=== PATIENT | female | born 1935 | race Caucasian/White ===

== ENCOUNTER 2018-01-11 18:31 | Inpatient (IN) ==
[2018-01-11] MEDS ORDERED: 0.9 % Sodium Chloride 1,000 ML IVC ONE (18:35)
--- NOTE | 2018-01-11 18:40 | Emergency Department Note ---
Disposition Clinical Impression: UTI (urinary tract infection), Dehydration Disposition: Admitted As Inpatient Condition: Serious Referrals: NONE,PCP [Primary Care Provider] - Forms: ED Satisfaction Letter, Work/School Release Time of Disposition: 19:32 ( will admit) Altered Mental Status HPI - General Chief Complaint: ED General Medical Stated Complaint: multiple complaints form ecf Source: EMS Mode of arrival: EMS Limitations: altered mental status Nursing Notes Reviewed: Yes Vital Signs Reviewed: Yes - History of Present Illness HPI Narrative: This 82-year-old female who presented to the emergency department via EMS from local assisted for evaluation of elevated blood pressure , and possible aspiration pneumonia. Patient has had decreased oral intake in the assisted per nurse. Patient is a DNR status. Patient herself is unable to give any kind of a history, most of the history is obtained from her assisted records and from the nurse at the assisted. MD complaint: altered mental status, confusion, decreased responsiveness Onset (ago): day(s) (one) Pain Severity: none Consistency of Symptoms: waxing and waning - Related Data Home Medications Medication Instructions Recorded Confirmed Divalproex Sodium [Depakote 125 mg PO BID 01/13/15 03/04/15 Sprinkle] HydrALAZINE 10 mg PO Q6HR 01/13/15 03/04/15 Metoprolol [Lopressor] 25 mg PO BID 01/13/15 03/04/15 Quetiapine Fumarate [SEROquel] 25 mg PO HS 01/13/15 03/04/15 Rivaroxaban [Xarelto] 20 mg PO QAM 01/13/15 03/04/15 Ergocalciferol (VITAMIN D2) 8,000 unit PO 03/04/15 03/04/15 [Drisdol] Multivit-Minerals/Folic Acid 200 mcg PO QAM 03/04/15 03/04/15 [Adult Multi Gummies] Previous Rx's Medication Instructions Recorded levoFLOXacin [Levaquin] 500 mg PO DAILY #7 tablet 05/18/16 Allergies Allergy/AdvReac Type Severity Reaction Status Date / Time No Known Allergies Allergy Verified 05/18/16 20:33 Limitations: ROS unobtainable due to patients medical condition (Patient is confused and cannot speak) Past Medical History - Past Medical History Medical history: Reports: arthritis, dementia, hypertension, pulmonary embolus, other Surgical history: Reports: no surgical history Psychiatric history: Reports: anxiety [employer] BU[employer]ER history: Reports: no [employer] BU[employer]ER history - Social History Smoking Status: Never smoker Smokeless Tobacco Status: No Alcohol use: Reports: none Drug use: Reports: none Physical Exam - General Limitations: altered mental status General appearance: in no apparent distress - Head Head exam: atraumatic, normocephalic, normal inspection - Eye Eye exam: Present: normal appearance, PERRL, EOMI - Expanded Eye Exam Pupils: Left: reactive - ENT ENT exam: normal exam, normal oropharynx, mucous membranes moist - Expanded ENT Exam External ear exam: Present: normal external inspection Mouth exam: Present: normal external inspection Teeth exam: Present: normal inspection Throat exam: Present: normal inspection - Neck Neck exam: Present: normal inspection, full ROM, trachea midline - Chest Chest inspection: Present: normal inspection, symmetric chest wall rise - Respiratory Respiratory exam: Present: normal lung sounds bilaterally - Cardiovascular Cardiovascular exam: Present: tachycardia - Abdominal Exam Abdominal exam: Present: soft, Non-Tender. Absent: tenderness, distention, guarding, rebound, rigidity - Extremities Exam Extremities exam: Present: normal inspection, full ROM. Absent: tenderness, pedal edema - Expanded Upper Extremity Exam Shoulder exam: Present: normal inspection, full ROM Arm exam: Present: normal inspection, full ROM Elbow exam: Present: normal inspection, full ROM Forearm/Wrist exam: Present: normal inspection, full ROM Hand exam: Present: normal inspection, full ROM Vascular exam: Normal: capillary refill, radial pulse - Expanded Lower Extremity Exam Hip/Pelvis exam: Present: normal inspection, full ROM Upper leg exam: Present: normal inspection, full ROM Knee exam: Present: normal inspection, full ROM Lower leg exam: Present: normal inspection, full ROM Ankle exam: Present: normal inspection, full ROM Foot/toe exam: Present: normal inspection, full ROM Neurovascular/Tendon exam: Absent: motor deficit, sensory deficit, tendon deficit - Back Exam Back exam: Present: normal inspection, full ROM. Absent: tenderness - Neurological Exam Neurological exam: Present: other (Patient is confused, she is basically laying in bed and will not open her eyes) - Expanded Neurological Exam Coma Scale Eye Opening: To Voice Coma Scale Motor Response: Localizes to Pain Coma Scale Verbal Response: Confused Coma Scale Total: 12 - Psychiatric Psychiatric exam: Present: normal affect, normal mood - Skin Skin exam: Present: warm, dry, intact, normal color Course Vital Signs Temperature 100.2 F H 01/11/18 18:35 Pulse Rate 108 01/11/18 18:35 Respiratory Rate 32 01/11/18 18:35 Blood Pressure 136/85 01/11/18 18:35 O2 Sat by Pulse Oximetry 93 01/11/18 18:35 Temperature 100.2 F H 01/11/18 18:40 Pulse Rate 108 01/11/18 18:40 Respiratory Rate 32 01/11/18 18:40 Blood Pressure 136/85 01/11/18 18:40 O2 Sat by Pulse Oximetry 93 01/11/18 18:40 Oxygen Delivery Oxygen Delivery Nasal Cannula Altered Mental Status - MDM Narrative Medical decision making narrative: Labs are obtained including CBC chemistry. Dawson catheter was placed urine analysis urine culture blood culture 2 and lactic acid level was obtained. Patient was started on IV normal saline given 1000 mL of normal saline bolus, after blood cultures patient was given 2 g of Rocephin IV. Due to the fact that this patient is not eating and with the elevated white count and a urinary tract infection, patient will be admitted for fluids and IV antibiotics. She is a DNR - Differential Diagnosis Likely: altered mental status, hypoglycemia, sepsis - Lab Data Lab results reviewed: Yes I reviewed the patient's lab results. Result diagrams: 01/11/18 18:48 01/11/18 18:48 Lab Results 01/11/18 01/11/18 01/11/18 Range/Units 18:48 18:48 18:48 WBC 24.8 H (4.3-11.1) K/mcL RBC 4.45 (3.82-4.97) M/mcL Hgb 12.7 (11.5-15.4) g/dL Hct 39.5 (35.3-44.9) % MCV 88.8 (83.0-100.0) fL MCH 28.5 (28.0-33.3) pg MCHC 32.2 (31.6-35.5) g/dL RDW 16.8 H (11.5-14.5) % Plt Count 323 (140-400) K/mcL MPV 10.7 (9.4-12.4) fL Immature Gran % 1.0 (0-4) % Seg Neutrophils % 78.7 % Lymphocytes % 8.8 % Monocytes % 11.3 % Eosinophils % 0.0 % Basophils % 0.2 % Neutrophils # 19.5 H (1.6-8.9) K/mcL Lymphocytes # 2.2 (0.6-4.6) K/mcL Monocytes # 2.8 H (0.0-1.3) K/mcL Eosinophils # 0.0 (0.0-0.6) K/mcL Basophils # 0.1 (0.0-0.2) K/mcL PT 21.3 H (9.4-12.1) Seconds INR 1.9 APTT 28.7 (26.0-36.0) Seconds Sample Site ABG pH (7.32-7.45) pH Units ABG pCO2 (35-45) mmHg ABG pO2 (85-104) mmHg ABG HCO3 (21-27) mEq/L ABG Total CO2 (20-26) mEq/L ABG O2 Saturation (95-98) % ABG Base Excess (-2 to 3) mEq/L Oscar Test O2 Delivery Device Inspired O2 (1-15=lpm [id number]=%) Sodium 144 (136-145) mEq/L Potassium 4.3 (3.5-5.1) mEq/L Chloride 109 H (98-107) mEq/L Carbon Dioxide 25 (23-29) mEq/L BUN 28 H (8-23) mg/dL Creatinine 1.10 (0.60-1.20) mg/dL Est GFR ( Amer) 58 L (> 60) Est GFR (Non-Af Amer) 48 L (> 60) BUN/Creatinine Ratio 25 (6-26) Glucose 169 H (70-105) mg/dL Calculated Osmolality 307 H (280-300) Lactic Acid (0.5-2.2) mmol/L Calcium 9.5 (8.6-10.3) mg/dL Total Bilirubin 1.3 H (0.3-1.0) mg/dL Direct Bilirubin 0.1 (0.0-0.2) mg/dL Indirect Bilirubin 1.2 (0.0-1.2) mg/dL AST 22 (13-39) Units/L ALT 31 (7-52) Units/L Alkaline Phosphatase 84 (34-104) Units/L Ammonia (16-53) mcmol/L Troponin I < 0.03 (< 0.04) ng/mL Serum Total Protein 7.6 (6.4-8.9) g/dL Albumin 3.4 L (3.5-5.7) g/dL Globulin 4.2 H (2.4-3.5) g/dL Albumin/Globulin Ratio 0.8 L (1.1-2.2) TSH (0.340-5.600) mcIU/mL Ethyl Alcohol < 10 (Less than 10) mg/dL 01/11/18 01/11/18 01/11/18 Range/Units 18:48 18:48 18:48 WBC (4.3-11.1) K/mcL RBC (3.82-4.97) M/mcL Hgb (11.5-15.4) g/dL Hct (35.3-44.9) % MCV (83.0-100.0) fL MCH (28.0-33.3) pg MCHC (31.6-35.5) g/dL RDW (11.5-14.5) % Plt Count (140-400) K/mcL MPV (9.4-12.4) fL Immature Gran % (0-4) % Seg Neutrophils % % Lymphocytes % % Monocytes % % Eosinophils % % Basophils % % Neutrophils # (1.6-8.9) K/mcL Lymphocytes # (0.6-4.6) K/mcL Monocytes # (0.0-1.3) K/mcL Eosinophils # (0.0-0.6) K/mcL Basophils # (0.0-0.2) K/mcL PT (9.4-12.1) Seconds INR APTT (26.0-36.0) Seconds Sample Site ABG pH (7.32-7.45) pH Units ABG pCO2 (35-45) mmHg ABG pO2 (85-104) mmHg ABG HCO3 (21-27) mEq/L ABG Total CO2 (20-26) mEq/L ABG O2 Saturation (95-98) % ABG Base Excess (-2 to 3) mEq/L Oscar Test O2 Delivery Device Inspired O2 (1-15=lpm [id number]=%) Sodium (136-145) mEq/L Potassium (3.5-5.1) mEq/L Chloride (98-107) mEq/L Carbon Dioxide (23-29) mEq/L BUN (8-23) mg/dL Creatinine (0.60-1.20) mg/dL Est GFR ( Amer) (> 60) Est GFR (Non-Af Amer) (> 60) BUN/Creatinine Ratio (6-26) Glucose (70-105) mg/dL Calculated Osmolality (280-300) Lactic Acid 2.0 (0.5-2.2) mmol/L Calcium (8.6-10.3) mg/dL Total Bilirubin (0.3-1.0) mg/dL Direct Bilirubin (0.0-0.2) mg/dL Indirect Bilirubin (0.0-1.2) mg/dL AST (13-39) Units/L ALT (7-52) Units/L Alkaline Phosphatase (34-104) Units/L Ammonia 37 (16-53) mcmol/L Troponin I (< 0.04) ng/mL Serum Total Protein (6.4-8.9) g/dL Albumin (3.5-5.7) g/dL Globulin (2.4-3.5) g/dL Albumin/Globulin Ratio (1.1-2.2) TSH 4.011 (0.340-5.600) mcIU/mL Ethyl Alcohol (Less than 10) mg/dL 01/11/18 Range/Units 19:33 WBC (4.3-11.1) K/mcL RBC (3.82-4.97) M/mcL Hgb (11.5-15.4) g/dL Hct (35.3-44.9) % MCV (83.0-100.0) fL MCH (28.0-33.3) pg MCHC (31.6-35.5) g/dL RDW (11.5-14.5) % Plt Count (140-400) K/mcL MPV (9.4-12.4) fL Immature Gran % (0-4) % Seg Neutrophils % % Lymphocytes % % Monocytes % % Eosinophils % % Basophils % % Neutrophils # (1.6-8.9) K/mcL Lymphocytes # (0.6-4.6) K/mcL Monocytes # (0.0-1.3) K/mcL Eosinophils # (0.0-0.6) K/mcL Basophils # (0.0-0.2) K/mcL PT (9.4-12.1) Seconds INR APTT (26.0-36.0) Seconds Sample Site L Brach ABG pH 7.51 H (7.32-7.45) pH Units ABG pCO2 30 L (35-45) mmHg ABG pO2 82 L (85-104) mmHg ABG HCO3 23 (21-27) mEq/L ABG Total CO2 24 (20-26) mEq/L ABG O2 Saturation 97 (95-98) % ABG Base Excess 1 (-2 to 3) mEq/L Oscar Test N/A O2 Delivery Device Cannula Inspired O2 4.0 (1-15=lpm [id number]=%) Sodium (136-145) mEq/L Potassium (3.5-5.1) mEq/L Chloride (98-107) mEq/L Carbon Dioxide (23-29) mEq/L BUN (8-23) mg/dL Creatinine (0.60-1.20) mg/dL Est GFR ( Amer) (> 60) Est GFR (Non-Af Amer) (> 60) BUN/Creatinine Ratio (6-26) Glucose (70-105) mg/dL Calculated Osmolality (280-300) Lactic Acid (0.5-2.2) mmol/L Calcium (8.6-10.3) mg/dL Total Bilirubin (0.3-1.0) mg/dL Direct Bilirubin (0.0-0.2) mg/dL Indirect Bilirubin (0.0-1.2) mg/dL AST (13-39) Units/L ALT (7-52) Units/L Alkaline Phosphatase (34-104) Units/L Ammonia (16-53) mcmol/L Troponin I (< 0.04) ng/mL Serum Total Protein (6.4-8.9) g/dL Albumin (3.5-5.7) g/dL Globulin (2.4-3.5) g/dL Albumin/Globulin Ratio (1.1-2.2) TSH (0.340-5.600) mcIU/mL Ethyl Alcohol (Less than 10) mg/dL - Radiology Data Radiology results reviewed: Yes I reviewed the patient's radiology results. TPA Checklist - LKW: 3-4.5 hrs Add. Warnings/Precautions Patient/family understanding: The patient/family members have been counseled and understood the risk, benefit, and alternatives of treatment.
[2018-01-11] MEDS ORDERED: Acetaminophen 650 MG RECTAL SUPP RC ONE (18:44)
[2018-01-11 18:59] LABS: Basophils # 0.1 K/mcL (0.0-0.2); Basophils % 0.2 %; Hematocrit 39.5 % (35.3-44.9); Hemoglobin 12.7 g/dL (11.5-15.4); Lymphocytes # 2.2 K/mcL (0.6-4.6); Lymphocytes % 8.8 %; Mean Corpuscular HGB Conc 32.2 g/dL (31.6-35.5); Mean Corpuscular Hemoglobin 28.5 pg (28.0-33.3); Mean Corpuscular Volume 88.8 fL (83.0-100.0); Mean Platelet Volume 10.7 fL (9.4-12.4); Monocytes # 2.8 K/mcL (0.0-1.3); Monocytes % 11.3 %; Neutrophils # 19.5 K/mcL (1.6-8.9); Platelet Count 323 K/mcL (140-400); Red Blood Count 4.45 M/mcL (3.82-4.97); Red Cell Distribution Width 16.8 % (11.5-14.5); Segmented Neutrophils % 78.7 %
[2018-01-11 19:07] LABS: INR 1.9; Prothrombin Time 21.3 Seconds (9.4-12.1)
[2018-01-11 19:10] LABS: Activated Partial Thrombo Time 28.7 Seconds (26.0-36.0)
[2018-01-11 19:13] LABS: Alanine Aminotransferase 31 Units/L (7-52); Albumin 3.4 g/dL (3.5-5.7); Albumin/Globulin Ratio 0.8 (1.1-2.2); Alkaline Phosphatase 84 Units/L (34-104); Aspartate Amino Transferase 22 Units/L (13-39); BUN/Creatinine Ratio 25 (6-26); Bilirubin,Direct 0.1 mg/dL (0.0-0.2); Bilirubin,Indirect 1.2 mg/dL (0.0-1.2); Bilirubin,Total 1.3 mg/dL (0.3-1.0); Blood Urea Nitrogen 28 mg/dL (8-23); Calcium 9.5 mg/dL (8.6-10.3); Carbon Dioxide 25 mEq/L (23-29); Chloride 109 mEq/L (98-107); Ethanol < 10 mg/dL (Less than 10); Globulin 4.2 g/dL (2.4-3.5); Glucose 169 mg/dL (70-105); Osmolality,Calculated 307 (280-300); Potassium 4.3 mEq/L (3.5-5.1); Sodium 144 mEq/L (136-145); Total Protein 7.6 g/dL (6.4-8.9); eGFR For Non-African Americans 48 (> 60)
[2018-01-11 19:16] LABS: Troponin I < 0.03 ng/mL (< 0.04)
[2018-01-11] MEDS ORDERED: Naloxone 0.4 MG/ML INJ IVP PRN (19:34)
[2018-01-11 19:36] LABS: ABG Base Excess 1 mEq/L (-2 to 3); ABG HCO3 23 mEq/L (21-27); ABG Oxygen Saturation 97 % (95-98); ABG PCO2 30 mmHg (35-45); ABG PH 7.51 pH Units (7.32-7.45); ABG PO2 82 mmHg (85-104); ABG TCO2 24 mEq/L (20-26)
[2018-01-11] MEDS: cefTRIAXone 2,000 MG in Water for inj. (sterile) 20 ML 20 ML IVP SCH (20:18)
[2018-01-11 20:59] LABS: Bilirubin,Urine Small (Negative); Blood,Urine Moderate (Negative); Clarity,Urine Cloudy (Clear); Glucose,Urine (UA) Normal (Normal); Ketones,Urine Negative (Negative); Leukocyte Esterase,Urine Trace (Negative); Nitrite,Urine Positive (Negative); Protein,Urine >=300 mg/dL (Neg-Trace); Specific Gravity,Urine 1.025 (1.010-1.025); Urobilinogen,Urine Normal (Normal)
[2018-01-11 21:02] LABS: Color,Urine Dark Yellow (Yellow)
[2018-01-11 21:09] LABS: Hyaline Casts,Urine Few per lpf (None-Few); Mucus,Urine Moderate (Few); Squamous Epithelial Cell,Urine Few per lpf (None-Few)
[2018-01-11 21:10] LABS: RBC,Urine 30-50 per hpf (0-3)
[2018-01-11 21:11] LABS: Bacteria,Urine Many per hpf (None-Few)
[2018-01-11 21:31] LABS: Amphetamine Screen,Urine Negative ng/mL (Cutoff=1000); Barbiturate Screen,Urine Negative ng/mL (Cutoff=200); Benzodiazepines Screen,Urine Negative ng/mL (Cutoff=200); Cannabinoid Screen,Urine Negative ng/mL (Cutoff = 50); Cocaine Screen,Urine Negative ng/mL (Cutoff= 300); Opiate Screen,Urine Negative ng/mL (Cutoff=300); Phencyclidine Screen,Urine Negative ng/mL (Cutoff=25)
--- NOTE | 2018-01-12 11:55 | Internal Med History&Physical ---
Date of Encounter: 01/12/18 Time of Encounter: 11:20 Assessment and Plan (1) UTI (urinary tract infection) Current visit: Yes Status: Acute She has been started on IV Rocephin. Add lactobacillus and monitor. Qualifiers: Urinary tract infection type: site unspecified Hematuria presence: with hematuria Qualified Code(s): N39.0 - Urinary tract infection, site not specifi ed; R31.9 - Hematuria, unspecified (2) Dehydration Current visit: Yes Status: Acute IV fluids have been ordered. Recheck labs in a.m. (3) Dementia Current visit: Yes Status: Acute Continue to monitor. Qualifiers: Dementia type: unspecified type Dementia behavioral disturbance: without behavioral disturbance Qualified Code(s): F03.90 - Unspecified dementia without behavioral disturbance Internal Medicine - H&P: HPI Chief complaint: Hypertension, tachycardia Admitted From: Emergency Dept Plans for Post Hospital Care: Transfer Custodial Care History of present illness: Ms. Taylor is a 82 year old female who was sent to emergency room after staff at [facility] reported her to have tachycardia and hypertension. She was evaluated and emergency room and was found to have leukocytosis with left shift, azotemia, and tachycardia. She was admitted to [facility] floor for ongoing care needs. She has advanced dementia and is nonverbal. Past Med Surg Social Fam HX - Past Medical History Medical history: arthritis, dementia, hypertension, pulmonary embolus, other Additional medical history: VITAMIN D DEFICIENCY. Psychiatric history: anxiety - Past Surgical History Surgical History: no surgical history Additional surgical history: unknown - Social History Smoking Status: Never smoker Smokeless Tobacco Status: No Alcohol use: none Drug use: none Internal Medicine - H&P: Meds Amlodipine Besylate 5 mg PO HS 01/12/18 [History] Metoprolol [Lopressor] 25 mg PO BID 01/12/18 [History] Mirtazapine 15 mg PO DAILY 01/12/18 [History] Ondansetron ODT [Zofran ODT] 4 mg SL PRN PRN 01/12/18 [History] Tramadol HCl [Ultram] 100 mg PO DAILY 01/12/18 [History] Vitamin D 1,000 units PO DAILY 01/12/18 [History] Xarelto 20 mg PO DAILY 01/12/18 [History] Allergy/AdvReac Type Severity Reaction Status Date / Time No Known Allergies Allergy Verified 05/18/16 20:33 All Systems PM: A 10-system review of systems was performed and is negative for pertinent findi ngs except as documented above in the HPI. Review of systems: Review of systems is obtained from available records. Gen.: Her weight has increased from 123 pounds June 2012 to approximately 145 pounds at present Cardiovascular: She has no known hypertension MS heart failure or angina. 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 She has no known hematuria dysuria or kidney stones Neurologic: No history of large distribution strokes or seizures. She has advanced dementia. Endocrine: She has history of vitamin D deficiency. There is no known diabetes thyroid disease or hyperlipidemia Hematology/oncology: No history of blood disorders cancers or anemia Psychiatric: She has history of anxiety and depression the past. [place] skeletal: She has DJD but no known gout or other bone joint or muscle disorders. - Constitutional Vitals: Temp Pulse Resp BP Pulse Ox 100.3 F H 77 14 108/50 96 01/12/18 07:08 01/12/18 07:08 01/12/18 07:08 01/12/18 07:08 01/12/18 07:08 Exam: Gen.: She is a well-developed well-nourished female lying comfortably in bed who appears in no acute distress at present time HEENT: Head is atraumatic and normocephalic. Eyes: She does not open her eyes for examination. Mouth: Mucosa is dry but she is mouth breathing. Neck: She appears to have enlarged thyroid gland without palpable nodules. There is no adenopathy. There is a nonspecific fullness to the neck. Heart: Regular with occasional ectopic beat. Rate is approximately 100/m. Lungs: No wheezes or crackles are heard. Abdomen: Soft and nontender. Bowel sounds are diminished. No masses or guarding are noted. Extremities: She has significant DJD changes of her hands. There is no edema of her lower legs. Neurologic: Mental status: She does not respond meaningfully to voice or light touch. Cranial nerves: She does not move her facial muscle spontaneously. She does not open her eyes or allow her eyelids to be raised. Motor: She has stiffness on passive range of motion of her joints. No further neurologic testing is attempted. Skin: Warm and dry Internal Med - H&P Results - Labs CBC & Chem 7: 01/11/18 18:48 01/11/18 18:48 Labs: Short CBC 01/11/18 Range/Units 18:48 WBC 24.8 H (4.3-11.1) K/mcL Hgb 12.7 (11.5-15.4) g/dL Hct 39.5 (35.3-44.9) % Plt Count 323 (140-400) K/mcL Neutrophils # 19.5 H (1.6-8.9) K/mcL BMP 01/11/18 18:48 Sodium 144 Potassium 4.3 Chloride 109 H Carbon Dioxide 25 BUN 28 H Creatinine 1.10 Glucose 169 H Calcium 9.5 Cardiac Enzymes 01/11/18 Range/Units 18:48 Troponin I < 0.03 (< 0.04) ng/mL Liver Function 01/11/18 Range/Units 18:48 Total Bilirubin 1.3 H (0.3-1.0) mg/dL Direct Bilirubin 0.1 (0.0-0.2) mg/dL AST 22 (13-39) Units/L ALT 31 (7-52) Units/L Alkaline Phosphatase 84 (34-104) Units/L Albumin 3.4 L (3.5-5.7) g/dL Urine 01/11/18 Range/Units 20:58 Urine Color Dark Yellow (Yellow) Urine Clarity Cloudy A (Clear) Urine pH 7.0 (5.0-8.0) pH Units Ur Specific [place] 1.025 (1.010-1.025) Urine Protein >=300 H (Neg-Trace) mg/dL Urine Glucose (UA) Normal (Normal) mg/dL - ABG Interpretation ABG results: 01/11/18 19:33 ABG pH 7.51 H ABG pCO2 30 L ABG pO2 82 L ABG HCO3 23 ABG Total CO2 24 ABG O2 Saturation 97 ABG Base Excess 1 - Impressions ITS Impressions Chest X-Ray 01/11/18 18:35 IMPRESSION: 1. No radiographic evidence of acute cardiopulmonary process. 2. Hypoventilatory changes with bibasilar atelectasis. D/ / Ethan Ramírez MD / Ethan Ramírez MD Interpreting Provider: Ethan Ramírez MD
[2018-01-12] MEDS: cefTRIAXone 2,000 MG in Water for inj. (sterile) 20 ML 20 ML IVP SCH (17:57)
[2018-01-12] MEDS: Lactobacillus 1 EACH CAP.SPRINK PO SCH (20:49)
[2018-01-13 06:18] LABS: Basophils % 0.3 %; Eosinophils # 0.1 K/mcL (0.0-0.6); Eosinophils % 0.9 %; Hematocrit 34.3 % (35.3-44.9); Hemoglobin 10.6 g/dL (11.5-15.4); Immature Granulocytes % 0.6 % (0-4); Lymphocytes # 1.8 K/mcL (0.6-4.6); Mean Corpuscular HGB Conc 30.9 g/dL (31.6-35.5); Mean Corpuscular Hemoglobin 28.8 pg (28.0-33.3); Mean Corpuscular Volume 93.2 fL (83.0-100.0); Mean Platelet Volume 11.1 fL (9.4-12.4); Monocytes # 1.1 K/mcL (0.0-1.3); Monocytes % 8.3 %; Neutrophils # 9.6 K/mcL (1.6-8.9); Platelet Count 234 K/mcL (140-400); Red Blood Count 3.68 M/mcL (3.82-4.97); Red Cell Distribution Width 16.2 % (11.5-14.5); Segmented Neutrophils % 75.9 %
[2018-01-13 06:41] LABS: Alanine Aminotransferase 50 Units/L (7-52); Albumin 2.8 g/dL (3.5-5.7); Albumin/Globulin Ratio 0.7 (1.1-2.2); Alkaline Phosphatase 95 Units/L (34-104); Aspartate Amino Transferase 35 Units/L (13-39); BUN/Creatinine Ratio 29 (6-26); Bilirubin,Total 1.4 mg/dL (0.3-1.0); Blood Urea Nitrogen 19 mg/dL (8-23); Calcium 8.6 mg/dL (8.6-10.3); Carbon Dioxide 23 mEq/L (23-29); Chloride 111 mEq/L (98-107); Globulin 3.8 g/dL (2.4-3.5); Glucose 88 mg/dL (70-105); Osmolality,Calculated 298 (280-300); Potassium 3.4 mEq/L (3.5-5.1); Sodium 143 mEq/L (136-145); Total Protein 6.6 g/dL (6.4-8.9); eGFR For Non-African Americans > 60 (> 60)
--- NOTE | 2018-01-13 10:21 | Internal Med Progress Note ---
Date of Encounter: 01/13/18 Time of Encounter: 10:17 - Assessment and plan (1) UTI (urinary tract infection) Current Visit: Yes Status: Acute Assessment and plan: January 13. Preliminary urine culture shows gram-negative rods. Continue empiric Rocephin with lactobacillus Qualifiers: Urinary tract infection type: site unspecified Hematuria presence: with hematuria Qualified Code(s): N39.0 - Urinary tract infection, site not specified; R31.9 - Hematuria, unspecified (2) Dehydration Current Visit: Yes Status: Acute Assessment and plan: January 13. Resolved with BUN and creatinine now 19 and 0.66 respectively. Decrease IV fluid rate. (3) Dementia Current Visit: Yes Status: Acute Assessment and plan: January 13. TSH and B12 level normal. Qualifiers: Dementia type: unspecified type Dementia behavioral disturbance: without behavioral disturbance Qualified Code(s): F03.90 - Unspecified dementia without behavioral disturbance (4) Anemia Current Visit: Yes Status: Acute Assessment and plan: January 13. Hemoglobin has decreased to 10.6. Order anemia testing in a.m. Qualifiers: Anemia type: unspecified type Qualified Code(s): D64.9 - Anemia, unspecified (5) Hypokalemia Current Visit: Yes Status: Acute Assessment and plan: January 13. IV fluids changed to include supplemental potassium. - Subjective Interval history: January 13. No new problems have arisen. - Constitutional Vitals: Temp Pulse Resp BP Pulse Ox 99.7 F H 94 18 120/69 97 01/13/18 10:00 01/13/18 06:44 01/13/18 10:00 01/13/18 10:00 01/13/18 06:44 Exam: She is resting comfortably in bed and appears in no acute distress. She opens her eyes and talks (incoherently). Heart is regular without murmurs gallops or ectopics. Lungs are clear anteriorly. Extremities show no edema. I reviewed her medications and lab results. Internal Medicine: Result - Labs CBC & Chem 7: 01/13/18 06:05 01/13/18 06:05 Labs: Short CBC 01/13/18 Range/Units 06:05 WBC 12.7 H (4.3-11.1) K/mcL Hgb 10.6 L D (11.5-15.4) g/dL Hct 34.3 L (35.3-44.9) % Plt Count 234 (140-400) K/mcL Neutrophils # 9.6 H (1.6-8.9) K/mcL BMP 01/13/18 06:05 Sodium 143 Potassium 3.4 L Chloride 111 H Carbon Dioxide 23 BUN 19 Creatinine 0.66 Glucose 88 Calcium 8.6 Liver Function 01/13/18 Range/Units 06:05 Total Bilirubin 1.4 H (0.3-1.0) mg/dL AST 35 (13-39) Units/L ALT 50 (7-52) Units/L Alkaline Phosphatase 95 (34-104) Units/L Albumin 2.8 L (3.5-5.7) g/dL - ABG Interpretation ABG results: ABG ABG pH 7.51 pH Units (7.32-7.45) H 01/11/18 19:33 ABG pCO2 30 mmHg (35-45) L 01/11/18 19:33 ABG pO2 82 mmHg (85-104) L 01/11/18 19:33 ABG O2 Saturation 97 % (95-98) 01/11/18 19:33 PT/INR, D-dimer PT 21.3 Seconds (9.4-12.1) H 01/11/18 18:48 Consult Discharge Plan - Plan Referrals: NONE,PCP [Primary Care Provider] - 1 week
[2018-01-13] MEDS: Lactobacillus 1 EACH CAP.SPRINK PO SCH ×2 (10:24→21:19)
[2018-01-13] MEDS: 0.45 % Sodium Chloride w/KCl 20 MEQ/1,000 ML MLS IVC SCH (10:42)
[2018-01-13] MEDS: cefTRIAXone 2,000 MG in Water for inj. (sterile) 20 ML 20 ML IVP SCH (21:19)
[2018-01-14] MEDS: 0.45 % Sodium Chloride w/KCl 20 MEQ/1,000 ML MLS IVC SCH (00:11)
[2018-01-14 06:41] LABS: Basophils % 0.4 %; Eosinophils # 0.1 K/mcL (0.0-0.6); Eosinophils % 1.4 %; Hematocrit 31.4 % (35.3-44.9); Hemoglobin 9.9 g/dL (11.5-15.4); Immature Granulocytes % 0.5 % (0-4); Mean Corpuscular HGB Conc 31.5 g/dL (31.6-35.5); Mean Corpuscular Hemoglobin 28.4 pg (28.0-33.3); Mean Corpuscular Volume 90.2 fL (83.0-100.0); Mean Platelet Volume 10.5 fL (9.4-12.4); Monocytes % 10.7 %; Neutrophils # 6.5 K/mcL (1.6-8.9); Platelet Count 228 K/mcL (140-400); Red Blood Count 3.48 M/mcL (3.82-4.97); Red Cell Distribution Width 15.7 % (11.5-14.5)
[2018-01-14 06:58] VITALS: BP 163/80
[2018-01-14 07:01] LABS: BUN/Creatinine Ratio 24 (6-26); Blood Urea Nitrogen 14 mg/dL (8-23); Calcium 8.2 mg/dL (8.6-10.3); Carbon Dioxide 22 mEq/L (23-29); Chloride 108 mEq/L (98-107); Glucose 95 mg/dL (70-105); Osmolality,Calculated 286 (280-300); Sodium 138 mEq/L (136-145); eGFR For Non-African Americans > 60 (> 60)
[2018-01-14 09:01] LABS: % Iron Saturation 6 % (15-50); Iron 16 mcg/dL (50-170); Transferrin 186 mg/dL (203-362)
[2018-01-14 09:20] LABS: Ferritin 139 ng/mL (10-120)
--- NOTE | 2018-01-14 09:29 | Discharge Summary ---
Orders not resulted at time of discharge: Pending orders 01/11/18 18:56 Culture,Blood [BC] Stat 01/14/18 06:30 Folate AM 0400 Date of Encounter: 01/14/18 Time of Encounter: 09:20 - Discharge Diagnosis (1) UTI (urinary tract infection) Priority: Primary Status: Acute Qualifiers: Urinary tract infection type: site unspecified Hematuria presence: with hematuria Qualified Code(s): N39.0 - Urinary tract infection, site not specified; R31.9 - Hematuria, unspecified (2) Dehydration Priority: Secondary Status: Acute (3) Dementia Priority: Secondary Status: Acute Qualifiers: Dementia type: unspecified type Dementia behavioral disturbance: without behavioral disturbance Qualified Code(s): F03.90 - Unspecified dementia without behavioral disturbance (4) Anemia Priority: Secondary Status: Acute Qualifiers: Anemia type: unspecified type Qualified Code(s): D64.9 - Anemia, unspecified (5) Hypokalemia Priority: Secondary Status: Resolved Hospital course: Ms. Taylor is a 82 year old female who was sent to emergency room after staff at shelter reported her to have tachycardia and hypertension. She was evaluated and emergency room and was found to have leukocytosis with left shift, azotemia, and tachycardia. She was admitted to [facility] floor for ongoing care needs. Initial orders were written by the emergency room physician. I saw her on January 12 and performed a history and physical. She was started empirically on IV Rocephin with lactobacillus. Urine culture returned showing Escherichia coli. She had resolution of leukocytosis and left shift by day of discharge. She will continue with Macrobid and Lactobacillus for 3 additional days at the shelter. Azotemia resolved with BUN and creatinine decreasing to 14 and 0.59 respectively on day of discharge with estimated GFR greater than 60. Labs will be monitored at the [facility]. Anemia testing showed iron 16, transferrin saturation 6%, transferrin 186, B12 482, and folate pending at time of discharge. Hemoglobin was 9.9 on day of discharge. She had clinical improvement with improved alertness by day of discharge. She will be discharged back to [facility] and follow with me. - Time Spent with Patient Total time spent providing and/or coordinating discharge services: - Discharge Medications Prescriptions: Lactobacillus [Culturelle] 1 each PO BID 3 Days cap.sprink Nitrofurantoin Monohyd/M-Cryst [Macrobid 100 mg Capsule] 100 mg PO BID 3 Days capsule Home Medications: Metoprolol [Lopressor] 25 mg PO BID 01/12/18 [History] Ondansetron ODT [Zofran ODT] 4 mg SL PRN PRN 01/12/18 [History] Tramadol HCl [Ultram] 100 mg PO DAILY 01/12/18 [History] Vitamin D 1,000 units PO DAILY 01/12/18 [History] Xarelto 20 mg PO DAILY 01/12/18 [History] Lactobacillus [Culturelle] 1 each PO BID 3 Days cap.sprink 01/14/18 [Rx] Nitrofurantoin Monohyd/M-Cryst [Macrobid 100 mg Capsule] 100 mg PO BID 3 Days capsule 01/14/18 [Rx] Allergies/Adverse Reactions: Allergy/AdvReac Type Severity Reaction Status Date / Time No Known Allergies Allergy Verified 05/18/16 20:33 Date of admission: 01/11/18 22:55 Primary care physician: PCP NONE - Constitutional Vitals: Temp Pulse Resp BP Pulse Ox 97.4 F L 83 15 163/80 95 01/14/18 06:56 01/14/18 06:56 01/14/18 06:56 01/14/18 06:56 01/14/18 06:56 - Patient Status Disposition: Transfer SNF Condition: Serious - Discharge Instructions Follow Up With: NONE,PCP [Primary Care Provider] - 1 week - Diet and Activity Activity: resume usual activities as tolerated Diet: advance to your usual diet
--- NOTE | 2018-01-14 09:36 | Physician Discharge Referral ---
ExtendedCare Referral Info Transfer To: [facility] Provider in Charge: Ronnie Provider in Charge after Transfer: PCP (Ronnie) - Diagnosis (1) UTI (urinary tract infection) Priority: Primary Status: Acute (2) Dehydration Priority: Secondary Status: Resolved (3) Dementia Priority: Secondary Status: Acute (4) Anemia Priority: Secondary Status: Acute (5) Hypokalemia Priority: Secondary Status: Resolved Prognosis: Poor Aware of Diagnosis: Family Aware of Prognosis: Family - Transfer Medications Prescriptions: Ascorbic Acid [Vitamin C] 500 mg PO DAILY 365 Days tablet.er Ferrous Sulfate 325 mg PO DAILY 365 Days tablet Lactobacillus [Culturelle] 1 each PO BID 3 Days cap.sprink Nitrofurantoin Monohyd/M-Cryst [Macrobid 100 mg Capsule] 100 mg PO BID 3 Days capsule Home Medications: Metoprolol [Lopressor] 25 mg PO BID 01/12/18 [History] Ondansetron ODT [Zofran ODT] 4 mg SL PRN PRN 01/12/18 [History] Tramadol HCl [Ultram] 100 mg PO DAILY 01/12/18 [History] Vitamin D 1,000 units PO DAILY 01/12/18 [History] Xarelto 20 mg PO DAILY 01/12/18 [History] Ascorbic Acid [Vitamin C] 500 mg PO DAILY 365 Days tablet.er 01/14/18 [Rx] Ferrous Sulfate 325 mg PO DAILY 365 Days tablet 01/14/18 [Rx] Lactobacillus [Culturelle] 1 each PO BID 3 Days cap.sprink 01/14/18 [Rx] Nitrofurantoin Monohyd/M-Cryst [Macrobid 100 mg Capsule] 100 mg PO BID 3 Days capsule 01/14/18 [Rx] Allergies/Adverse Reactions: Allergy/AdvReac Type Severity Reaction Status Date / Time No Known Allergies Allergy Verified 05/18/16 20:33 - Respiratory Orders Smoking Cessation: Smoking cessation has been advised. For more information, call the [place] [employer] Quit Line at 7-800-KYQF-NOW. - Lab Orders Lab Orders: Other (include drug levels w/frequency) (CBC with differential, BMP in 1 week) - Mobility Orders Bedrest - Diet Orders Pureed CERTIFICATION: I certify that the transfer of the above named patient to an Extended Care Facility is necessary for the continuing treatment of the diagnosis listed. The above information is true and accurate reflection of patient's current condition. Confidential - Redisclosure prohibited without a patient's written consent.
[2018-01-14] MEDS: Lactobacillus 1 EACH CAP.SPRINK PO SCH (10:40)
== END 2018-01-14 12:10 | DRG 690 ==
LOC: INPPIK 18:31 → EMEROOPIK 18:31 → INPPIK 23:12
PROVIDERS: ADMIT Internal Medicine; ATTEND Internal Medicine